=== PATIENT | female | born 1985 | race American Indian/Alaskan Native ===

== ENCOUNTER 2017-09-04 05:47 | Day surgery (SDC) | payer MEDICAID ==
--- NOTE | 2017-09-03 23:16 | History and Physical Report ---
History of Present Illness Date of examination: 09/03/17 Chief complaint: chronic pelvic pain History of present illness: Pt is a 31 year old -[place]one[place] female who presents for surgical management of chronic pelvic pain for more than two years minimally responsive to medical management. Past History Past Medical History: asthma, GERD, other (morbid obesity, anxiety, depression, arthritis). 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 History: herpes Family/Genetic History: heart disease, hypertension - Obstetrical History : 2 Para: 2 Medications and Allergies Allergies Allergy/AdvReac Type Severity Reaction Status Date / Time amoxicillin [Amoxicillin] Allergy Vomiting Verified 08/30/17 15:06 Home Medications Medication Instructions Recorded Confirmed Last Taken Type No Known Home Medications [No 08/30/17 08/30/17 Unknown History Reported Home Medications] Active Meds: Active Medications Famotidine (Pepcid) 20 mg PO PREOP NR Stop: 09/04/17 23:59 Lactated Ringer's (Lactated Ringers) 1,000 mls @ 75 mls/hr IV DIRECT MILKA Midazolam HCl (Versed) 2 mg IV PREOP NR Stop: 09/04/17 23:59 Review of Systems All systems: negative - Physical Exam Breasts: Positive: deferred Cardiovascular: Regular rate Lungs: Positive: Clear to auscultation Abdomen: Positive: soft (obese) Extremities: Positive: normal Results All other labs normal. Assessment and Plan A: Chronic pelvic pain Morbid Obesity P: Proceed with diagnostic laparoscopy and other indicated procedures.
[~2017-09-04 05:47] MED LIST: CLEOCIN 600 MG/50 mL 600 MG/50 ML BAG IV NR; GARAMYCIN 200 MG in NACL 0.9% 100 ML IV NR; GARAMYCIN IV SCH
[2017-09-04] MEDS ORDERED: LACTATED RINGERS 1,000 ML IV SCH (06:00)
[2017-09-04] MEDS ORDERED: VERSED IV NR (06:00)
[2017-09-04] MEDS ORDERED: PEPCID PO NR (06:00)
[2017-09-04] MEDS ORDERED: NACL BACTERIOSTATIC INFILTRATI ONE (06:48)
[2017-09-04] MEDS ORDERED: DIPRIVAN 10 MG/ML IV ONE (07:07)
[2017-09-04] MEDS ORDERED: SUBLIMAZE ONE (07:10)
[2017-09-04] MEDS ORDERED: ZEMURON IV ONE (07:10)
[2017-09-04] MEDS ORDERED: XYLOCAINE MPF 2% ONE (07:10)
--- NOTE | 2017-09-04 07:11 | Anesthesia Day of Surgery ---
Anesthesia Day of Surgery - Day of Surgery Patient Examined: Yes Patient H&P Reviewed: Yes Patient is NPO: Yes
--- NOTE | 2017-09-04 07:12 | Anesthesia Consultation ---
Anesthesia Consult and Med Hx Date of service: 09/04/17 - Airway Anesthetic Teeth Evaluation: Edentulous ROM Head & Neck: Adequate Mental/Hyoid Distance: Adequate Mallampati Class: Class II Intubation Access Assessment: Probably Good - Pulmonary Exam CTA: Yes (clear blbs) - Cardiac Exam Cardiac Exam: RRR - Pre-Operative Health Status ASA Pre-Surgery Classification: ASA3 Proposed Anesthetic Plan: General - Pulmonary Hx Smoking: Yes (former) Hx Asthma: Yes - Cardiovascular System Hx Hypertension: No (denies) - Central Nervous System Hx Psychiatric Problems: No - Gastrointestinal Hx Gastroesophageal Reflux Disease: No - Endocrine Hx Non-Insulin Dependent Diabetes: No - Other Systems Hx Alcohol Use: Yes (occas) Hx Obesity: Yes
[2017-09-04] MEDS ORDERED: MARCAINE 0.5% 30 ML INFILTRATI ONE (07:15)
[2017-09-04 07:24] LABS: Hematocrit 33.2 % (30.3-42.9); Hemoglobin 10.6 gm/dl (10.1-14.3); Mean Corpuscular HGB Conc 32 % (30-34); Mean Corpuscular Hemoglobin 29 pg (28-32); Mean Corpuscular Volume 90 fl (79-97); Platelet Count 210 K/mm3 (140-440); Red Blood Count 3.68 M/mm3 (3.65-5.03); Red Cell Distribution Width 14.6 % (13.2-15.2)
[2017-09-04] MEDS ORDERED: PROVENTIL IH NR (07:30)
[2017-09-04] MEDS ORDERED: SUBLIMAZE IV PRN (07:30)
[2017-09-04] MEDS ORDERED: ZOFRAN IV PRN (07:30)
[2017-09-04] MEDS ORDERED: DILAUDID IV PRN (07:30)
[2017-09-04] MEDS ORDERED: DECADRON ONE (07:48)
[2017-09-04] MEDS ORDERED: ZOFRAN ONE ×2 (07:49→08:40)
[2017-09-04] MEDS ORDERED: TRANSDERM-SCOP TD ONE (07:58)
[2017-09-04] MEDS ORDERED: MARCAINE 0.5% INFILTRATI ONE (08:07)
[2017-09-04] MEDS ORDERED: NACL 0.9% IR ONE (08:08)
[2017-09-04] MEDS ORDERED: ROBINUL ONE (08:47)
--- NOTE | 2017-09-04 08:58 | Operative Report ---
Operative Report Operative Report: Date of procedure: September 04, 2017 Preoperative diagnosis: 1) Chronic Pelvic Pain 2) Morbid Obesity Postoperative diagnosis: Same Procedure: Attempted diagnostic laparoscopy Surgeon: Milana Tello M.D. Sharebroker: Yisel Segura M.D. Anesthesia: General endotracheal anesthesia Findings: 1) Small anteverted uterus 2) Unable to gain abdominal entry Estimated blood loss: 5 mL IV fluid: 600 mL Urine output: 100 mL clear Specimens: None Complications: None. Counts correct 2 Disposition: Stable to PACU Indications for procedure: Patient is a 31 year old -[place] female who presents for surgical management of chronic pelvic pain for more than two years minimally responsive to medical management. Operation in detail: After the risks, benefits, alternatives and complications of the procedure were explained to the patient, she gave informed consent for the procedure. She was subsequently taken to the operating room with her IV noted to be running and placed in the dorsal supine position with sequential compression devices functioning. General endotracheal anesthesia was then induced without difficulty. An exam under anesthesia was then performed yielding a small anteverted uterus. The patient was then placed in placement dorsal lithotomy position and prepped and draped in normal sterile fashion. A timeout was then performed. A bautista catheter was placed. An open sided speculum was placed into the vagina for visualization of the cervix. A single-tooth tenaculum was placed on the anterior lip of the cervix for traction. A uterine manipulator was then placed. The single-tooth tenaculum and speculum were then removed from the vagina. The surgeon's gloves were then changed. Attention was then turned to entry into the abdominal cavity. A 5 mm infraumbilical incision was made with an 11 blade. The skin was grasped on either side of the umbilicus with towel clips and tented up. Multiple attempts to pass the Veres needle were attempted with cofirmation with the saline drop test, but a long 5 mm trocar could not traverse the subcutaneous tissue successfully. A second incision was made 5 cm superior to the umbilicus with a knife. A saline drop test confirmed intraperitoneal placement, and the abdomen was insufflated with 2L of carbon dioxide. However, again with multiple attempts a long 5 mm trocar was not able to pass through the subcutaneous tissue into the peritoneal cavity. At this point in the interest of patient safety, the procedure was abandoned. The incisions were then infiltrated with quarter percent Marcaine. The incisions were then reapproximated with 4-0 Vicryl in a subcuticular fashion. They were then each covered with Steri- Strips and a tegaderm. All instruments were then removed from the vagina. At this time the procedure was ended. The patient was placed into the dorsal supine position and extubated without difficulty. She was subsequently taken to the PACU in stable condition. All instrument, needle and lap counts were correct 2.
--- NOTE | 2017-09-04 09:08 | Short Stay Summary ---
Short Stay Documentation Date of service: 09/04/17 - Allergies and Medications Current Medications: Allergies amoxicillin [Amoxicillin] Allergy (Verified 08/30/17 15:06) Vomiting Home Medications Medication Instructions Recorded Confirmed Last Taken Type Fluticasone (Nf) [Flovent Hfa(Nf)] 2 puff IH BID 09/04/17 09/04/17 09/03/17 History Active Medications Albuterol (Proventil) 2.5 mg IH PREOP NR Stop: 09/04/17 11:00 Last Admin: 09/04/17 07:22 Dose: 2.5 mg Famotidine (Pepcid) 20 mg PO PREOP NR Stop: 09/04/17 23:59 Last Admin: 09/04/17 06:50 Dose: 20 mg Fentanyl (Sublimaze) 50 mcg IV Q5MIN PRN PRN Reason: Pain , Severe (7-10) Stop: 09/04/17 15:00 Hydromorphone HCl (Dilaudid) 0.25 mg IV Q10MIN PRN PRN Reason: Pain, Moderate (4-6) Stop: 09/04/17 15:00 Lactated Ringer's (Lactated Ringers) 1,000 mls @ 75 mls/hr IV DIRECT MILKA Last Admin: 09/04/17 06:55 Dose: 75 mls/hr Clindamycin HCl (Cleocin 600 Mg/50 Ml) 600 mg in 50 mls @ 100 mls/hr IV PREOP NR PRN Reason: Protocol Stop: 09/04/17 23:59 Gentamicin Sulfate 200 mg/ (Sodium Chloride) 105 mls @ 200 mls/hr IV PREOP NR Stop: 09/04/17 23:59 Midazolam HCl (Versed) 2 mg IV PREOP NR Stop: 09/04/17 23:59 Last Admin: 09/04/17 07:28 Dose: 2 mg Ondansetron HCl (Zofran) 4 mg IV ONCE PRN PRN Reason: Nausea And Vomiting Stop: 09/04/17 18:00 - Physical exam Breasts: deferred - Brief post op/procedure progress note Date of procedure: 09/04/17 Pre-op diagnosis: Chronic Pelvic Pain, Morbid Obesity Post-op diagnosis: same Procedure: Attempted diagnostic laparoscopy Anesthesia: GETA Findings: 1) Small anteverted uterus 2) Unable to gain abdominal entry Surgeon: ARIES TELLO Air Brush Artist: JAKE FREIRE Estimated blood loss: minimal (5 mL) Pathology: none Condition: stable - Hospital course Hospital course: Pt underwent attempted diagnostic laparoscopy which she tolerated well. She was subsequently observed in the PACU until she met discharge criteria. She will follow up in the office in [address] Tello. - Disposition Condition at discharge: Stable Disposition: [id number]-01 TO HOME OR SELFCARE - Discharge Diagnoses (1) Chronic pelvic pain in female Status: Acute (2) Morbid obesity Status: Acute Short Stay Discharge Plan Activity: other (Nothing in vagina and no tub baths for 4 weeks ) Weight Bearing Status: Full Weight Bearing Diet: regular Follow up with: SYLVIA ESCOTO MD [Primary Care Provider] - 7 Days ARIES TELLO MD [Staff Physician] - 09/18/17 (incision check ) Prescriptions: Ibuprofen [Motrin] 800 mg PO Q8HR PRN #30 tablet PRN Reason: Pain oxyCODONE /ACETAMINOPHEN [Percocet 5/325] 1 tab PO Q6HR PRN #30 tablet PRN Reason: Pain Simethicone [Bicarsim] 80 mg PO Q6HR PRN #30 tablet PRN Reason: Gas Pain
[2017-09-04] MEDS ORDERED: PERCOCET 5/325 ONE (09:39)
--- NOTE | 2017-09-04 09:46 | Post Anesthesia Evaluation ---
- Post Anesthesia Evaluation Patient Participated: Yes Airway Patent: Yes Stable Respiratory Function: Yes Nausea/Vomiting: No Temp > 96.8F: Yes Pain Manageable: Yes Adequeate Hydration: Yes Anesthesia Complications: No
[2017-09-04] MEDS ORDERED: MYLICON PO PRN (10:00)
[2017-09-04] MEDS ORDERED: PERCOCET 5/325 PO ONE (10:00)
[2017-09-04 11:08] VITALS: BP 127/64
== END 2017-09-04 11:16 | disposition home or self-care (01) ==
LOC: OR 05:47
PROVIDERS: ATTEND Obstetrics & Gynecology
DX: R10.2 Pelvic and perineal pain (principal); G89.29 Other chronic pain; E66.01 Morbid (severe) obesity due to excess calories; J45.909 Unspecified asthma, uncomplicated; M19.90 Unspecified osteoarthritis, unspecified site; F41.9 Anxiety disorder, unspecified; F32.9 Major depressive disorder, single episode, unspecified; Z68.42 Body mass index [BMI] 45.0-49.9, adult; Z98.84 Bariatric surgery status; Z98.890 Other specified postprocedural states; Z88.1 Allergy status to other antibiotic agents; Z87.891 Personal history of nicotine dependence
CPT/HCPCS: 36415; 49320; 81025; 85027; 86850; 86900; 86901; J1100; J1580; J2250; J2405; J2704; J3010; J7120